=== PATIENT | female | born 1950 | race Caucasian/White ===

== ENCOUNTER → 2017-02-22 | Outpatient (CLI) | payer OTHER ==
[~2017-02-22] MED LIST: ACET-2321 PO; ASPI-1085 PO; CITA40TA14 PO; GABA300C PO; HYDR-4074 PO; INSU100V SQ; INSU100V8 SQ; LEVO112T4 PO; LOVA40TA2 PO; NAPR500T3 PO; RAMI5CAP22 PO; RANI150T12 PO
== END ==
LOC: WC.BC 14:36
DX: Z12.31 Encounter for screening mammogram for malignant neoplasm of breast (principal); C50.911 Malignant neoplasm of unspecified site of right female breast; Z90.11 Acquired absence of right breast and nipple
CPT/HCPCS: 77063; G0202